=== PATIENT | female | born 2000 | race Caucasian/White ===

== ENCOUNTER 2024-07-21 09:03 | Outpatient (CLI) | payer MEDICAID ==
[~2024-07-21] VITALS: Ht 157.5 cm; Wt 93.9 kg
[2024-07-21] MEDS: albuterol 2.5 MG/3 ML nebule NEB ONE (09:35)
[2024-07-21 09:36] VITALS: PULSE 76; RESP 16; O2SAT 97
[2024-07-21 09:48] VITALS: PULSE 71; RESP 16
== END 2024-07-21 23:59 | disposition home or self-care (01) ==
LOC: RT 09:03
PROVIDERS: ATTEND Physician Assistant
DX: R05.3 Chronic cough (principal)
CPT/HCPCS: 94060; 94760